=== PATIENT | female | born 1995 | race Caucasian/White ===

== ENCOUNTER 2023-07-09 02:33 | Emergency (ER) | payer OTHER, SELFPAY ==
[2023-07-09] VITALS (7 sets, daily range): BP systolic 106–126; BP diastolic 54–86; PULSE 61–85; RESP 13–15; TEMP 36.7; O2SAT 97–100; BMI 32.8
--- NOTE | 2023-07-09 | ECG_ITS ---
Test Reason : CP Blood Pressure : / mmHG Vent. Rate : 060 BPM Atrial Rate : 060 BPM P-R Int : 192 ms QRS Dur : 102 ms QT Int : 392 ms P-R-T Axes : 023 036 026 degrees QTc Int : 392 ms Normal sinus rhythm Normal ECG No previous ECGs available Referred By: Anatoly Temple Electronically Signed By:ISAAC TURPIN MD
--- NOTE | ~2023-07-09 | XR_ITS ---
EXAMINATION: XR CHEST CLINICAL INFORMATION: Chest pain. COMPARISON: None available. TECHNIQUE: Frontal view of the chest was obtained. FINDINGS: No significant abnormality is noted involving the heart, lungs, mediastinum, bony thorax or soft tissues. XR/XR chest 1V IMPRESSION: Unremarkable examination.
--- NOTE | 2023-07-09 03:03 | ED.SYNCOPE ---
HPI - Syncope General Chief Complaint: Syncope Stated Complaint: etoh/marijuana syncope Time Seen by Provider: 07/09/23 02:34 Source: patient Mode of arrival: EMS Limitations: no limitations History of Present Illness HPI narrative: Patient with history of vasovagal syncope episode noknown cardiac history had few drinks earlier today and marijuana after that patient was sitting and just passed out friends noticed patient has fluttering of the eyes with twitching movements which lasted for few minutes , no tongue bite patient does not remember the event. Later patient went to bathroom and had another syncope episode which lasted for few seconds no head injury no family history of seizures no postictal Related Data Allergies Allergy/AdvReac Type Severity Reaction Status Date / Time No Known Allergies Allergy Verified 07/09/23 03:03 Review of Systems Review of Systems: Yes all other systems are reviewed and are negative [facility] Social History Social History Smoked in Last 30 Days: No Advance Directives: No Advance Directives Information Provided: Yes Physical Exam Vital Signs: Vital Signs: Last Vital Signs Temp 98.0 F 07/09/23 02:52 Pulse 71 07/09/23 05:47 Resp 15 07/09/23 04:09 BP 106/65 07/09/23 05:47 Pulse Ox 97 07/09/23 04:09 O2 Del Method Room Air 07/09/23 04:09 BMI result Body Mass Index 32.8 Appearance: Alert. Oriented X3. No acute distress. Eyes: PERRLA, No Nystagmus ENT: Pharynx normal. Oral Mucosa moist Neck: Normal inspection. Neck supple. CVS: Normal heart rate and rhythm. Pulses normal. Respiratory: No respiratory distress. Equal air entry bilateral, no wheezing/rales/rhonchi Abdomen: Soft and nontender. Bowel sounds are present, no mass palpable, no CVA tenderness Skin: Skin warm and dry. Normal skin color. Normal skin turgor. Extremities: No lower extremity edema. No calf tenderness Neuro: Oriented X 3. No motor deficit. No sensory deficit.No cerebellar signs , cranial nerves II-XII intact Medical Decision Making Medical Decision Making MDM Narrative: Patient feeling better now normal orthostatic likely been a vasovagal episode with questionable seizure Differential Diagnosis Differential Diagnoses: The differential diagnosis associated with the presentation includes Vasovagal syncope/seizure/substance abuse Lab Data MDM Lab Attestation statement: I reviewed the patient's lab results. 07/09/23 03:09 07/09/23 03:09 Labs: Lab Results 07/09/23 07/09/23 Range/Units 03:09 04:07 WBC 9.8 (4.8-10.8) X10*3/uL RBC 4.55 (4.20-5.50) X10*6/uL Hgb 12.1 (12.0-16.0) g/dl Hct 36.9 L (37.0-47.0) % MCV 81.1 (80.0-98.0) fL MCH 26.6 L (27.0-33.0) pg MCHC 32.8 (31.0-35.0) g/dl RDW 12.5 (11.0-16.0) % Plt Count 282 (160-400) X10*3/uL MPV 9.6 (9.4-12.3) fL Immature Gran % (Auto) 0.3 (0.0-0.4) % Neut % (Auto) 58.1 (45-73) % Lymph % (Auto) 32.9 (20-40) % [place] % (Auto) 7.1 (2-11) % Eos % (Auto) 1.3 (0-4) % Baso % (Auto) 0.3 (0-2) % Lymph # (Auto) 3.2 (1.2-4.9) X10*3/uL [place] # (Auto) 0.7 (0.1-1.2) X10*3/uL Eos # (Auto) 0.1 (0.0-0.4) X10*3/uL Baso # (Auto) 0.0 (0.0-0.2) X10*3/uL Abs Immat Gran (auto) 0.03 (0.00-0.03) X10*3/uL Absolute Neuts (auto) 5.7 (2.0-8.3) x10*3/uL Absolute Nucleated RBC 0.000 (0.0-0.012) X10*3/uL Nucleated RBC % (auto) 0.0 (0.0-0.2) /100WBC Sodium 134 L (135-145) mmol/L Potassium 3.2 L (3.3-5.1) mmol/L Chloride 103 (96-108) mmol/L Carbon Dioxide 20 L (22-29) mmol/L Anion Gap 14 (12-20) BUN 12 (9-16) mg/dL Creatinine 0.74 (0.5-1.4) mg/dL Estim Creat Clear Calc 109.3 Estimated GFR > 60 Random Glucose 110 (60-115) mg/dL Calcium 9.3 (8.4-10.2) mg/dL Magnesium 2.0 (1.6-2.6) mg/dL Total Bilirubin 0.3 (0.0-1.0) mg/dL AST 18 (5-31) U/L ALT 15 (0-31) U/L Alkaline Phosphatase 66 (39-117) U/L Troponin I High Sens < 2.7 (<3.5-17.0) ng/L Total Protein 7.4 (6.5-8.0) g/dL Albumin 4.3 (3.5-5.0) g/dL Beta HCG, Quant < 2 mIU/mL Urine Color Yellow Urine Appearance Clear Urine pH 6.0 (5.0-9.0) Ur Specific [place] <= 1.005 (1.005-1.025) Urine Protein Negative (Neg-Trace) mg/dL Urine Glucose (UA) Negative (Negative) mg/dL Urine Ketones Negative (Negative) mg/dL Urine Blood Negative (Negative) Urine Nitrite Negative (Negative) Ur Leukocyte Esterase Negative (Negative) Urine RBC 0-2 (0-2) /HPF Urine WBC 0-5 (0-5) /HPF Ur Squamous Epith Cells 0-2 (0-2) /HPF Urine Bacteria None Seen (None Seen) Hyaline Casts 0-2 (0-2) /LPF Urine Opiates Screen Not Detected (Not Detect) Urine Fentanyl Screen Not Detected (Not Detect) Ur Barbiturates Screen Not Detected (Not Detect) Ur Phencyclidine Scrn Not Detected (Not Detect) Ur Amphetamines Screen Not Detected (Not Detect) U Benzodiazepines Scrn Not Detected (Not Detect) Urine Cocaine Screen Not Detected (Not Detect) U Marijuana (THC) Screen POSITIVE H (Not Detect) Ethyl Alcohol 98 mg/dL Independent Interpretation I performed an independent interpretation of an: EKG Interpretation: Normal sinus rhythm heart rate 60 beats per minute normal interval normal axis no acute ischemia Discharge Plan Discharge Clinical Impression: Vasovagal syncope Patient Disposition: Home, Self-Care Instructions: Syncope (ED) Additional Instructions: Possibly had vasovagal episode Follow with PCP for further evaluation as needed
--- OUTSIDE RECORDS SUMMARY | 2023-07-09 03:06 | XMS_ITS | Patient Health Record ---
Author Name Unknown Organization [address] Address [address] [address] Care Team Providers Care Naval Aircrewman Helicopter Name Role Phone SEGUNDO PARKER Unavailable [phone] ALLERGIES No Known Allergies REASON FOR REFERRAL No Information SOCIAL HISTORY Tobacco Use: Social History Observation Description Date Details (start date - stop date) Never Smoker NA - NA Sex Assigned At : Social History Observation Description Sex Assigned At Unknown Tobacco Use/Smoking Question Answer Notes Are you a nonsmoker Alcohol Screen (Audit-C) Question Answer Notes Did you have a drink contain ing alcohol in the past year? Yes How often did you have a dri nk containing alcohol in the past year? 2 to 3 times a week (3 points) Points 3 Interpretation Positive PROBLEMS Problem Type ICD Code Onset Dates Problem Status W/U Status Risk SNOMED Code Notes Problem Other obesity due to excess calories (E66.09) Active confirmed 026070591 Problem Body mass index [BMI] 32.0-32.9, adult (Z68.32) Active confirmed [id number] VITAL SIGNS Heart Rate 74 /min 07/07/2023 Oximetry 99 % 07/07/2023 Blood pressure diastolic 71 mm Hg 07/07/2023 Height 61 in 07/07/2023 Blood pressure systolic 116 mm Hg 07/07/2023 Weight 173 lbs 07/07/2023 BMI 32.68 kg/m2 07/07/2023 Encounters Encounter Location Date Provider Diagnosis [address] [address] 07/07/2023 SEGUNDO ELENA Other obesity due to excess calories E66.09 and Body mass index [BMI] 32.0-32.9, adult Z68.[address] [address] 07/05/2023 ASSESSMENTS Encounter Date Diagnosis Assessment Notes Treatment Notes Treatment Clinical Notes 07/07/2023 Other obesity due to excess calories (ICD-10 - E66.09) 07/07/2023 Body mass index [BMI] 32.0-32.9, adult (ICD-10 - Z68.32) PLAN OF TREATMENT Pending Test Test Name Order Date 25OH VITAMIN D 07/07/2023 CBC (COMPLETE BLOOD COUNT) WITH DIFF 10/2022 COMPREHENSIVE METABOLIC PANEL 07/07/2023 HEMOGLOBIN A1C 07/07/2023 INSULIN ANTIBODY 07/07/2023 LIPID PANEL 07/07/2023 TSH WITH REFLEX TO FT4 07/07/2023 URINALYSIS W/REFLEX CULTURE 07/07/2023 Next Appt Details Provider Name:SEGUNDO PARKER, 08/24/2023 11:15:00 AM, [address] [facility], [facility] [address], [place], [address], Insurance Providers Payer Name Payer Address Payer Phone Subscriber Number Group Number Insured Name Patient Relationship to Insured Coverage Start Date Coverage End Date [facility] [address] [place] [address] [id number] JOEY ZAMBRANO Self - patient is the insured 3 MEDICAL (GENERAL) HISTORY Medical History History ICD Code carpal tunnel anxiety blood clots Surgical History Surgery Date(Month/Year) section 05/01/2020
--- OUTSIDE RECORDS SUMMARY | 2023-07-09 03:07 | XMS_ITS | Continuity of Care Document ---
Author Name Unknown Organization [facility] Address [address] [address]- Care Team Providers Care Emergency Specialist Name Role Phone Mine Gill MD Primary Care Physician [facility] [address] [place] [id number] Attending Physician: Guilherme Bryan Admitting Physician: Guilherme Bryan Referring Physician: AdmtrGuilherme Allergies, Adverse Reactions, Alerts Substance Reaction Severity Status NKA Active Immunizations Given and Recorded Vaccine Date Status Refusal Reason tetanus/diphtheria/pertussis, acel(Tdap) 12/09/18 Given tetanus/diphtheria/pertussis, acel(Tdap) 06/03/08 Given Human Papillomavirus Vaccine 06/03/09 Given Human Papillomavirus Vaccine 06/03/08 Given Human Papillomavirus Vaccine 05/30/07 Given Varicella Virus Vaccine 06/06/08 Given Varicella Virus Vaccine 03/25/98 Given Meningococcal Conjugate Vaccine 06/03/08 Given Poliovirus Vaccine, Inactivated 04/28/01 Given Poliovirus Vaccine, Inactivated 09/25/98 Given Poliovirus Vaccine, Inactivated 97 Given Poliovirus Vaccine, Inactivated 97 Given Measles/Mumps/Rubella Virus Vaccine 04/28/01 Given Measles/Mumps/Rubella Virus Vaccine 06/24/98 Given diphtheria/tetanus/pertussis, acel(DTaP) 04/28/01 Given diphtheria/tetanus/pertussis, acel(DTaP) 09/25/98 Given diphtheria/tetanus/pertussis, acel(DTaP) 97 Given diphtheria/tetanus/pertussis, acel(DTaP) 97 Given diphtheria/tetanus/pertussis, acel(DTaP) 97 Given pneumococcal 7-valent vaccine 01/02/01 Given Haemophilus B conjugate (HbOC) vaccine 06/24/98 [place] Haemophilus B conjugate (HbOC) vaccine 97 [place] Haemophilus B conjugate (HbOC) vaccine 97 [place] Haemophilus B conjugate (HbOC) vaccine 97 [place] hepatitis B pediatric vaccine 97 Given hepatitis B pediatric vaccine 97 Given hepatitis B pediatric vaccine 97 Given Medications Depo-Provera Contraceptive 150 mg/mL intramuscular suspension 1 mL = 150 mg, Intramuscular, Every 3 months, # 1 mL, 0 Refills, Maintenance, 06/10/20 14:09:00 EDT, Suspension, [facility], 152.51, cm, 05/05/20 5:27:00 EDT, Height, 79.5, kg, 04/30/20 13:57:00 EDT, Dry Weight Start Date: 06/10/20 Status: Ordered docusate sodium 100 mg oral capsule 100 mg, 1, capsule, By Mouth, 2 times a day, # 60 capsule, Refills 0, Tot. Refills 0, Maintenance, 05/05/20 6:17:00 EDT, Route to Pharmacy Electronically, [facility], 152.51, cm, 05/05/20 5:27:00 EDT, Height, 79.5, kg, 04/30/20 13:57:00... Start Date: 05/05/20 Status: Ordered ferrous fumarate 325 mg oral tablet 1 tablet = 325 mg, By Mouth, Daily, # 90 tablet, 0 Refills, Maintenance, 05/05/20 6:17:00 EDT, Tablet, [facility], 152.51, cm, 05/05/20 5:27:00 EDT, Height, 79.5, kg, 04/30/20 13:57:00 EDT, Dry Weight Start Date: 05/05/20 Status: Ordered ibuprofen 800 mg oral tablet 800 mg, 1, tablet, By Mouth, Every 8 hours, PRN, # 60 tablet, Refills 0, Tot. Refills 0, Maintenance, Pain , Moderate, 05/05/20 6:17:00 EDT, Route to Pharmacy Electronically, [facility], 152.51, cm, 05/05/20 5:27:00 EDT, Height, 79.5, kg... Start Date: 05/05/20 Status: Ordered oxyCODONE 5 mg oral capsule 1 capsule = 5 mg, By Mouth, Every 6 hours, PRN as needed for pain, # 15 capsule, 0 Refills, Maintenance, 05/05/20 6:17:00 EDT, Capsule, [facility], Partial fill upon patient request, 152.51, cm, 05/05/20 5:27:00 EDT, Height, 79.5, kg, 08... Start Date: 05/05/20 Status: Ordered 1 0 Refills, Maintenance, 04/30/20 12:08:00 EDT Start Date: 04/30/20 Status: Ordered Problem List Condition Effective Dates Status Health Status Inform ant Healthy adult(Confirmed) Active Social History Social History Type Response Smoking Status Never smoker entered on: 02/10/16 Sex
--- OUTSIDE RECORDS SUMMARY | 2023-07-09 03:07 | XMS_ITS | Continuity of Care Document ---
Author Name Unknown Organization [facility] Address [address] [address]- Care Team Providers Care Waste Management Specialist Name Role Phone Mine Gill MD Primary Care Physician [facility] [address] [address] [facility] Attending Physician: Anahy Luna CNM Admitting Physician: Anahy Luna CNM Referring Physician: Shantel Cancino CNM Allergies, Adverse Reactions, Alerts Substance Reaction Severity [...] 0 Refills, Maintenance, 06/10/20 14:09:00 EDT, Suspension, [facility], 152.51, cm, 05/05/20 5:27:00 EDT, Height, 79.5, kg, 04/30/20 13:57:00 EDT, Dry Weight Start Date: 06/10/20 Status: Ordered docusate sodium 100 mg oral capsule 100 mg, 1, capsule, By Mouth, 2 times a day, # 60 capsule, Refills 0, Tot. Refills 0, Maintenance, 05/05/20 6:17:00 EDT, Route to Pharmacy Electronically, [facility], 152.51, cm, 05/05/20 5:27:00 EDT, Height, 79.5, kg, 04/30/20 13:57:00... Start Date: 05/05/20 Status: Ordered ferrous fumarate 325 mg oral tablet 1 tablet = 325 mg, By Mouth, Daily, # 90 tablet, 0 Refills, Maintenance, 05/05/20 6:17:00 EDT, Tablet, [facility], 152.51, cm, 05/05/20 5:27:00 EDT, Height, 79.5, kg, 04/30/20 13:57:00 EDT, Dry Weight Start Date: 05/05/20 Status: Ordered ibuprofen 800 mg oral tablet 800 mg, 1, tablet, By Mouth, Every 8 hours, PRN, # 60 tablet, Refills 0, Tot. Refills 0, Maintenance, Pain , Moderate, 05/05/20 6:17:00 EDT, Route to Pharmacy Electronically, [facility], 152.51, cm, 05/05/20 5:27:00 EDT, Height, 79.5, kg... Start Date: 05/05/20 Status: Ordered oxyCODONE 5 mg oral capsule 1 capsule = 5 mg, By Mouth, Every 6 hours, PRN as needed for pain, # 15 capsule, 0 Refills, Maintenance, 05/05/20 6:17:00 EDT, Capsule, [facility], Partial fill upon patient request, [...]
--- OUTSIDE RECORDS SUMMARY | 2023-07-09 03:07 | XMS_ITS | Continuity of Care Document ---
Author Name Unknown Organization [facility] Address [address] [address]- Care Team Providers Care Shipping And Receiving Assistant Name Role Phone Mine Gill MD Primary Care Physician [facility]20 - 10/08/20 [facility] [address] [place] [id number] Attending Physician: Not on Staff, Attending MD Referring Physician: Malgorzata Wall CNM Allergies, Adverse Reactions, Alerts Substance Reaction [...] 0 Refills, Maintenance, 06/10/20 14:09:00 EDT, Suspension, [facility], 152.51, cm, 05/05/20 5:27:00 EDT, Height, 79.5, kg, 04/30/20 13:57:00 EDT, Dry Weight Start Date: 06/10/20 Status: Ordered docusate sodium 100 mg oral capsule 100 mg, 1, capsule, By Mouth, 2 times a day, # 60 capsule, Refills 0, Tot. Refills 0, Maintenance, 05/05/20 6:17:00 EDT, Route to Pharmacy Electronically, [facility], 152.51, cm, 05/05/20 5:27:00 EDT, Height, 79.5, kg, 04/30/20 13:57:00... Start Date: 05/05/20 Status: Ordered ferrous fumarate 325 mg oral tablet 1 tablet = 325 mg, By Mouth, Daily, # 90 tablet, 0 Refills, Maintenance, 05/05/20 6:17:00 EDT, Tablet, [facility], 152.51, cm, 05/05/20 5:27:00 EDT, Height, 79.5, kg, 04/30/20 13:57:00 EDT, Dry Weight Start Date: 05/05/20 Status: Ordered ibuprofen 800 mg oral tablet 800 mg, 1, tablet, By Mouth, Every 8 hours, PRN, # 60 tablet, Refills 0, Tot. Refills 0, Maintenance, Pain , Moderate, 05/05/20 6:17:00 EDT, Route to Pharmacy Electronically, [facility], 152.51, cm, 05/05/20 5:27:00 EDT, Height, 79.5, kg... Start Date: 05/05/20 Status: Ordered oxyCODONE 5 mg oral capsule 1 capsule = 5 mg, By Mouth, Every 6 hours, PRN as needed for pain, # 15 capsule, 0 Refills, Maintenance, 05/05/20 6:17:00 EDT, Capsule, [facility], Partial fill upon [...]
--- OUTSIDE RECORDS SUMMARY | 2023-07-09 03:07 | XMS_ITS | Continuity of Care Document ---
Author Name Unknown Organization [facility] Address [address] [place] [address]- Care Team Providers Care Steel Rule Die Maker Apprentice Name Role Phone Mine Gill MD Primary Care Physician Encounter [facility] Date(s): 04/29/20 - 06/01/[address] [address]- [facility] Attending Physician: Windy Delvalle MD Referring Physician: Sena Caruso CNM, I Allergies, Adverse Reactions, Alerts Substance Reaction Severity [...] hepatitis B pediatric vaccine 97 Given Medications docusate sodium 100 mg oral capsule 100 mg, 1, capsule, By Mouth, 2 times a day, # 60 capsule, Refills 0, Tot. Refills 0, Maintenance, 05/05/20 6:17:00 EDT, Route to Pharmacy Electronically, [facility], 152.51, cm, 05/05/20 5:27:00 EDT, Height, 79.5, kg, 04/30/20 13:57:00... Start Date: 05/05/20 Status: Ordered ferrous fumarate 325 mg oral tablet 1 tablet = 325 mg, By Mouth, Daily, # 90 tablet, 0 Refills, Maintenance, 05/05/20 6:17:00 EDT, Tablet, [facility], 152.51, cm, 05/05/20 5:27:00 EDT, Height, 79.5, kg, 04/30/20 13:57:00 EDT, Dry Weight Start Date: 05/05/20 Status: Ordered ibuprofen 800 mg oral tablet 800 mg, 1, tablet, By Mouth, Every 8 hours, PRN, # 60 tablet, Refills 0, Tot. Refills 0, Maintenance, Pain , Moderate, 05/05/20 6:17:00 EDT, Route to Pharmacy Electronically, [facility], 152.51, cm, 05/05/20 5:27:00 EDT, Height, 79.5, kg... Start Date: 05/05/20 Status: Ordered oxyCODONE 5 mg oral capsule 1 capsule = 5 mg, By Mouth, Every 6 hours, PRN as needed for pain, # 15 capsule, 0 Refills, Maintenance, 05/05/20 6:17:00 EDT, Capsule, [facility], Partial fill upon patient request, 152.51, [...]
--- OUTSIDE RECORDS SUMMARY | 2023-07-09 03:07 | XMS_ITS | Patient Health Record ---
Author Name Unknown Organization [facility] Address [address] [place], [place] [id number] Support Name Relationship Address Phone Sarah Oconnell Emergency Contact [address] [place] [address] Sarah Patel Guarantor Unknown [phone] REASON FOR REFERRAL No Information MEDICATIONS Medication SIG (Take, Route, Frequency, Duration) Notes Start Date End Date Status albuterol CFC free 90 mcg/inh 2 puff(s) inhaled 4 times a day for 30 day(s) Active SOCIAL HISTORY Tobacco Use: Social History Observation Description Date Details (start date - stop date) Never Smoker NA - NA Sex Assigned At : Social History Observation Description Sex Assigned At Unknown Tobacco Use Assessment MU Question Answer Notes What is your current smoking status? nonsmoker PLAN OF TREATMENT No Information Insurance Providers Payer Name Payer Address Payer Phone Subscriber Number Group Number Insured Name Patient Relationship to Insured Coverage Start Date Coverage End Date [facility] [place] [facility] [address] [place] [address] [id number] Sarah Patel Parent [employer] of [facility] [address] [place] [address] [phone] [id number] Sarah Oconnell Parent MEDICAL (GENERAL) HISTORY Medical History History ICD Code ? asthma Hospitalization History Reason Date(Month/Year) Rash -- Buttock [place] antibiotics 2009
--- OUTSIDE RECORDS SUMMARY | 2023-07-09 03:07 | XMS_ITS | Continuity of Care Document ---
Author Name Unknown Organization [facility] Address [address] [place] [address]- Care Team Providers Care Teradata Architect Name Role Phone Mine Gill MD Primary Care Physician [facility] - 09/21/19 [facility] [address] [address] Attending Physician: Not on Staff, Attending MD Allergies, Adverse Reactions, Alerts Substance Reaction Severity [...] hepatitis B pediatric vaccine 97 Given Medications ethinyl estradiol-norgestrel 30 mcg-0.3 mg oral tablet 1, tablet, By Mouth, Daily, # 28 tablet, Refills 11, Tot. Refills 11, Maintenance, 03/13/18 15:07:57 EDT, Route to Pharmacy Electronically, [facility]- [id number], [facility] Tablet Start Date: 03/13/18 Status: Ordered Problem List Condition Effective Dates Status Health Status Inform ant Healthy adult(Confirmed) Active Social History Social History Type Response Smoking Status Never smoker entered on: 02/10/16 Sex Female
--- OUTSIDE RECORDS SUMMARY | 2023-07-09 03:07 | XMS_ITS | Continuity of Care Document ---
Author Name Unknown Organization [facility] ter Address [address] [place] [id number]- Care Team Providers Care Slasher Tender Helper Name Role Phone Mine Gill MD Primary Care Physician Encounter [facility] [place] Date(s): 04/30/20 - 05/05/[address] [address]- [facility] Discharge Disposition: A-D/C Home Attending Physician: Windy Delvalle MD Admitting Physician: Windy Delvalle MD Referring Physician: Windy Delvalle MD Allergies, Adverse Reactions, Alerts Substance Reaction [...] 05/05/20 6:17:00 EDT, Route to Pharmacy Electronically, [facility], 152.51, cm, 05/05/20 5:27:00 EDT, Height, 79.5, kg, 04/30/20 13:57:00... Start Date: 05/05/20 Status: Ordered ferrous fumarate 325 mg oral tablet 1 tablet = 325 mg, By Mouth, Daily, # 90 tablet, 0 Refills, Maintenance, 05/05/20 6:17:00 EDT, Tablet, [facility], 152.51, cm, 05/05/20 5:27:00 EDT, Height, 79.5, kg, 04/30/20 13:57:00 EDT, Dry Weight Start Date: 05/05/20 Status: Ordered ibuprofen 800 mg oral tablet 800 mg, 1, tablet, By Mouth, Every 8 hours, PRN, # 60 tablet, Refills 0, Tot. Refills 0, Maintenance, Pain , Moderate, 05/05/20 6:17:00 EDT, Route to Pharmacy Electronically, [facility], 152.51, cm, 05/05/20 5:27:00 EDT, Height, 79.5, kg... Start Date: 05/05/20 Status: Ordered oxyCODONE 5 mg oral capsule 1 capsule = 5 mg, By Mouth, Every 6 hours, PRN as needed for pain, # 15 capsule, 0 Refills, Maintenance, 05/05/20 6:17:00 EDT, Capsule, [facility], Partial fill upon patient request, 152.51, cm, 05/05/20 5:27:00 EDT, Height, 79.5, kg, 08... Start Date: 05/05/20 Status: Ordered 1 0 Refills, Maintenance, 04/30/20 12:08:00 EDT Start Date: 04/30/20 Status: Ordered Problem List Condition Effective Dates Status Health Status Inform ant Healthy adult(Confirmed) Active Procedures Procedure Date Related Diagnosis Body Site Status delivery only; 05/01/20 C ompleted Vital Signs Most recent to oldest [Reference Range]: 1 2 3 4 Height 152.51 cm (05/05/20 5:00 AM) 152.51 cm (05/04/20 11:44 PM) 152.51 cm (05/04/20 10:45 PM) Weight 79.5 kg (04/30/20 1:57 PM) 79.3 kg (04/30/20 11:56 AM) Oxygen Saturation [94-100 %] 98 % (05/05/20 8:00 AM) 97 % (05/05/20 5:00 AM) 100 % (05/04/20 11:44 PM) Pulse Rate [55-90 bpm] 68 bpm (05/05/20 8:00 AM) 54 bpm *L* (05/05/20 5:00 AM) 66 bpm (05/04/20 11:44 PM) Body Mass Index [18.5-24.99] 34.18 *>HHI* (04/30/20 1:57 PM) Blood Pressure [90-138/55-84 mm Hg] 130/79mm Hg (05/05/20 8:00 AM) 128/72mm Hg (05/05/20 5:00 AM) 121/75mm Hg (05/04/20 11:44 PM) Respiratory Rate [16-30 br/min] 18 br/min (05/05/20 2:05 PM) 18 br/min (05/05/20 11:10 AM) 18 br/min (05/05/20 11:09 AM) 18 br/min (05/05/20 11:09 AM) Temperature [96.8-100.4 DegF] 98.7 DegF (05/05/20 8:00 AM) 98.0 DegF (05/05/20 5:00 AM) 98.1 DegF (05/04/20 11:44 PM) Mode of Delivery (Oxygen) Room air (05/05/20 8:00 AM) Room air (05/05/20 5:00 AM) Room air (05/04/20 11:44 PM) Blood pressure sites Arm, left (05/05/20 8:00 AM) Arm, left (05/05/20 5:00 AM) Arm, right (05/04/20 11:44 PM) Temperature Route Oral (05/05/20 8:00 AM) Oral (05/05/20 5:00 AM) Oral (05/04/20 11:44 PM) Dry Weight 79.5 kg (04/30/20 1:57 PM) 79.3 kg (04/30/20 11:56 AM) Weight Obtained Via Standing scale (04/30/20 11:56 AM) Dry Weight Obtained Via Standing scale (04/30/20 11:56 AM) Social History Social History Type Response Smoking Status Never smoker entered on: 02/10/16 Sex Female
--- OUTSIDE RECORDS SUMMARY | 2023-07-09 03:07 | XMS_ITS | Continuity of Care Document ---
Author Name Unknown Organization [facility] Address [address] [place] [id number]- Care Team Providers Care Battery Builder Name Role Phone Mine Gill MD Primary Care Physician Encounter [facility] Date(s): 08/22/19 - 09/01/[address] [id number]- [facility] Attending Physician: Guilherme Bryan Admitting Physician: Guilherme Bryan Referring Physician: Guilherme Bryan Allergies, Adverse Reactions, Alerts Substance Reaction Severity [...] 15:07:57 EDT, Route to Pharmacy Electronically, [facility]- [id number], [facility] Tablet Start Date: 03/13/18 Status: Ordered Problem List Condition Effective Dates Status Health Status Inform ant Healthy adult(Confirmed) Active Social History Social History Type Response Smoking Status Never smoker entered on: 02/10/16 Sex Female
[2023-07-09 03:13] LABS: Basophils Percent Auto 0.3 % (0-2); Eosinophils Absolute Auto 0.1 X10*3/uL (0.0-0.4); Eosinophils Percent Auto 1.3 % (0-4); Hematocrit 36.9 % (37.0-47.0); Hemoglobin 12.1 g/dl (12.0-16.0); Imm Gran Abs Auto 0.03 X10*3/uL (0.00-0.03); Imm Gran Pct Auto 0.3 % (0.0-0.4); Lymphocytes Absolute Auto 3.2 X10*3/uL (1.2-4.9); Lymphocytes Percent Auto 32.9 % (20-40); MANUAL DIFF FLAG NO; Mean Corpuscular HGB Conc 32.8 g/dl (31.0-35.0); Mean Corpuscular Hemoglobin 26.6 pg (27.0-33.0); Mean Corpuscular Volume 81.1 fL (80.0-98.0); Mean Platelet Volume 9.6 fL (9.4-12.3); Monocytes Absolute Auto 0.7 X10*3/uL (0.1-1.2); Monocytes Percent Auto 7.1 % (2-11); Neutrophils Absolute Auto 5.7 x10*3/uL (2.0-8.3); Neutrophils Percent Auto 58.1 % (45-73); Platelet Count 282 X10*3/uL (160-400); Red Blood Count 4.55 X10*6/uL (4.20-5.50); Red Cell Distribution Width 12.5 % (11.0-16.0); White Blood Count 9.8 X10*3/uL (4.8-10.8)
[2023-07-09 03:29] LABS: Alanine Aminotransferase 15 U/L (0-31); Albumin Level 4.3 g/dL (3.5-5.0); Alkaline Phosphatase 66 U/L (39-117); Anion Gap 14 (12-20); Aspartate Amino Transferase 18 U/L (5-31); Bilirubin Total 0.3 mg/dL (0.0-1.0); Blood Urea Nitrogen 12 mg/dL (9-16); Calcium 9.3 mg/dL (8.4-10.2); Carbon Dioxide 20 mmol/L (22-29); Chloride 103 mmol/L (96-108); Creatinine Clr Calc Pharmacy 109.3; Estimated Glomerular Filt Rate > 60; Ethanol 98 mg/dL; Glucose Random 110 mg/dL (60-115); Potassium 3.2 mmol/L (3.3-5.1); Sodium 134 mmol/L (135-145); Total Protein 7.4 g/dL (6.5-8.0)
[2023-07-09 03:33] LABS: HCG Quantitative < 2 mIU/mL; Troponin-I High Sensitivity < 2.7 ng/L (<3.5-17.0)
[2023-07-09 04:16] LABS: Appearance Urine Clear; Color Urine Yellow; Glucose Urine UA Negative (Negative); Leukocyte Esterase Urine Negative (Negative); Nitrite Urine Negative (Negative); Specific Gravity - Urine <= 1.005 (1.005-1.025); Urine Blood Negative (Negative); Urine Ketones Negative (Negative); Urine Protein Negative (Neg-Trace)
[2023-07-09 04:21] LABS: Bacteria Urine None Seen (None Seen); Hyaline Casts Urine 0-2 /LPF (0-2); RBC Urine 0-2 /HPF (0-2); Squamous Epithelial Cell Urine 0-2 /HPF (0-2); WBC Urine 0-5 /HPF (0-5)
[2023-07-09 04:25] LABS: Amphetamine Screen Urine Not Detected (Not Detect); Barbiturates, Urine Not Detected (Not Detect); Benzodiazepines Screen Urine Not Detected (Not Detect); Cannabinoid Screen Urine POSITIVE (Not Detect); Cocaine Screen Urine Not Detected (Not Detect); Fentanyl, urine Not Detected (Not Detect); Opiate Screen Urine Not Detected (Not Detect); Phencyclidine Screen Urine Not Detected (Not Detect)
--- NOTE | 2023-07-09 05:52 | MHC.EDTECH ---
pt did walking trial after orthos, did not feel dizzy while walking or during orthos.
== END 2023-07-09 06:05 | disposition home or self-care (01) ==
PROVIDERS: Emergency Provider Internal Medicine
DX: R55 Syncope and collapse (principal); F10.90 Alcohol use, unspecified, uncomplicated; Y90.4 Blood alcohol level of 80-99 mg/100 ml; F12.90 Cannabis use, unspecified, uncomplicated
CPT/HCPCS: 36415; 71045; 80053; 80307; 81001; 83735; 84484; 84702; 85025; 93005; 99284; 99285